=== PATIENT | male | born 1965 | race Caucasian/White ===

== ENCOUNTER 2025-04-29 15:56 | Emergency (ER) | payer BC, SELFPAY ==
--- OUTSIDE RECORDS SUMMARY | 2022-09-04 20:00 | XMS_ITS | Continuity of Care Document ---
Author Organization [facility] o Address [address] [place] [address] Phone Care Team Providers Care Forensic Social Worker Name Role Phone Arnulfo Colin PT Unavailable Unavailable Allergies, Adverse Reactions, Alerts Substance Reaction Status Criticality No Known Allergies Active No Inform ation Medications Medication Instructions Dosage Effective Dates (start - stop) Status Comments No Drug Therapy Prescribed Procedures Procedure Date Office/outpatient visit,est, mod 2021 Physical Tx excercises Office/outpatient visit,est, mod 2021 X-ray exam of hand, 2 views Ot eval low complex 30 min Physical Tx excercises Office/outpatient visit,new, mod 2021 Advance Directives Directive Yes / No Effective Date File Name No Information Encounters Encounter Description Practice Location Reason(s) For Visit Diagnoses Date Provider Providers Copied on Encounter [facility], [facility] [place], [address], tel:[phone] No Information 2 Cristi Arredondo. [address] [facility], [place], [place], [id number] , [place]. tel:[phone] Office/outpa tient visit,est, mod [facility], [address] [place], [address], [place] tel:[phone] [place] [facility] Hand Contusion of right ring finger w/o damage to nail, subsCarpal tunnel syndrome, right upper limb Jul- 2 Garrett Cardoso. [address], [place], [place], [facility], [place]. tel:[phone] Referring Provider: Walker Tucker, [address] [facility], [place], [place], [facility]. tel:[phone] [facility], [address], [facility], [place] tel:[phone] [place] [facility] Hand Unsp injury of right wrist, hand and finger(s), subs encntr 2 [facility]. [address], [place], [place], [id number] , [place]. tel:[phone] Referring Provider: Walker Tucker, [address] [facility], [place], [place], [facility]. tel:[phone] Office/outpa tient visit,[facility] [place] [facility], [address], [place], [facility], [place] tel:[phone] [place] Siddiqui Hand Contusion of right ring finger w/o damage to nail, subs 2 Garrett Cardoso. [address] [facility], [place], [place], [facility], [place]. tel:[phone] Referring Provider: Walker Tucker, [address] [facility], [place], [place], [facility]. tel:[phone] [facility], [address], [place], [facility], [place] tel:[phone] [place] [facility] Hand Unsp injury of right wrist, hand and finger(s), subs encntr 2 [facility]. [address] [facility], [place], [place], [id number] , [place]. tel:[phone] Referring Provider: Walker Tucker, [address] [facility], [place], [place], [facility]. tel:[phone] Office/outpa tient visit,[facility] [place], [address], [place], [facility], [place] tel:[phone] [facility] S[facility] Hand Injury of right hand, initial encounterInjur y of right hand, initial encounterContu amina of right middle finger w/o damage to nail, initContusion of right ring finger w/o damage to nail, init 2 Garrett Walker. [address], [place], [facility], . tel:[phone] Referring Provider: Walker Tucker, [address], [place], [facility]. tel:[phone] Family History Family Member Type Diagnosis Age At Onset Father Problem (finding) Congenital heart diseas e Mother Problem (finding) Congenital heart diseas e Payers Payer name Insurance type Covered alliance party ID Ligia cummings(s) [place] - [id number] Social History Type Description Quantity Date Captured Comments Sex Male Smoking Status No Information Chief Complaint And Reason For Visit No Information Reason For Referral Reason For Referral No Information Plan Of Treatment Date Type Action Status Future Order: Radiology Order [place], Lat, Right ([id number]), Body Site: Wrist/Hand, Sent on: Sent History Of Present Illness Encounter Date Complaint History Of Prese nt Illness Handedness/Job: [R] / [[employer]]Medical issues that may impact careDiabetes: [N]: Insulin: []: Anticoagulation: [N]: Pacemaker or defibrillator: [N]Diagnosis:05/27/2022: Right ring and small finger contusionsSurgery Performed:Tests: Handedness/Job: [R] / [[employer]]Medical issues that may impact careDiabetes: [N]: Insulin: []: Anticoagulation: [N]: Pacemaker or defibrillator: [N]Diagnosis:05/27/2022: Right ring and small finger contusionsSurgery Performed:Tests: Right hand injury Handedness/Job : [R] / [[employer]]Medical issues that may impact careDiabetes: [N]: Insulin: []: Anticoagulation: [N]: Pacemaker or defibrillator: [N]Diagnosis:05/27/2022: Right ring and small finger contusionsSurgery Performed:Tests: Functional Status Date Functional Assessmen t No Information Medications Administered Medication Instructions Dosage Effective Dates (start - stop) Status Comments No Drug Therapy Prescribed Instructions Date Instruction Additional Infor mation No Information Assessments Type Assessment Date No Information Patient Care Teams Name Effective Dates (start - stop) Status Members No Information
--- OUTSIDE RECORDS SUMMARY | 2025-02-28 09:06 | XMS_ITS ---
Author Organization [facility] Address [address] [place] [address] Phone Care Team Providers Care Healthcare Marketer Name Role Phone Cyndee VIRGEN, Chip Unavailable [phone] Conditions or Problems No information available. Medications No information available. Medications Administered No information available. Allergies, Adverse Reactions, Alerts No information available. Results No information available. Plan of Care Type Date Detail Appointment 10:15 AM Chip chacon MD, Appointment 10:00 AM Super User, Procedures No information available. Vital Signs No information available. Immunizations No information available. Advance Directives No information available.
--- NOTE | 2025-04-29 16:01 | ED_ITS ---
<Statement entered by Leonora Nunez DO - 04/29/25 16:53> I was consulted by the RAUL, and we discussed the complexity of the problems being addressed. I approved the treatment and management plan for this patient's care in the emergency department, thus performing a substantive portion of the medical decision making. Leonora Nunez DO Discharge Plan Disposition Patient Disposition: Home, Self-Care Referrals Follow up/Referrals: Rachel Wood [Primary Care Provider, Medical] - See instructions Activity Restrictions/Add. Instructions Additional Instructions/Restrictions: Today you were evaluated in the emergency department and diagnosed with sunburn. There is a possibility that this may be infectious and perhaps cellulitis, it is early and difficult to tell at this time. Will start you on doxycycline, an oral antibiotic as it is a low risk. It does increase your risk of skin sensitivity so please do not be in the sun while taking this medication. Follow-up with your PCP within this coming week. Return to the ED for worsening of condition. Clinical Impressions Clinical Impression: Sunburn Instructions Patient Instructions: DI for Sunburn Print Language Print Language: Citizen Of [place] Discharge ED Provider: Leonora Nunez General Adult HPI General Chief complaint: Skin/Abscess/Foreign Body Stated complaint: burning rash on right side Time Seen by Provider: 04/29/25 15:59 History of Present Illness HPI narrative: patient is a 59-year-old male who presents to the ED after sustaining a sunburn yesterday. Patient states he was laying on his side working on a tractor when his shirt pulled up and his pants were pulled down a bit, causing a sunburn on his right lower quadrant and side. Related Data Allergies Allergy/AdvReac Type Severity Reaction Status Date / Time No Known Allergies Allergy Verified 04/29/25 16:19 [facility] Disclaimer: The information contained in this section may have been updated after the patient was seen, as this information can be updated by other users. Social History Smoking Status: Never smoker alcohol intake: never current occupational status: employed Travel in the last 8 weeks?: None ROS Obtained: Yes Systems reviewed as appropriate & no additional complaints exc ept as documented Physical Exam General General appearance: alert and in no apparent distress Head Head exam: atraumatic and normocephalic Eye Eye exam: Present normal appearance and PERRL ENT ENT exam: Present normal exam Neck Neck exam: Present normal inspection Chest Chest inspection: Present normal inspection and symmetric chest wall rise; Absent tenderness Respiratory Respiratory exam: Present normal lung sounds bilaterally Cardiovascular Cardiovascular exam: Present regular rate Abdominal Exam Abdominal exam: Present soft and normal bowel sounds; Absent tenderness Extremities Exam Extremities exam: Present normal inspection and full ROM Back Exam Back exam: Present normal inspection and full ROM Neurological Exam Neurological exam: Present alert and oriented X3 Psychiatric Psychiatric exam: Present normal affect and normal mood Skin Skin exam: Present dry, intact and other (Large erythematous, warmth, blanchable area on patient's right lower abdomen and right side) Medical Decision Making Medical Records Screening: Per USPSTF and CDC recommendations, given the prevalence of disease in our region, it is our hospital?s policy to screen for HIV and viral Hepatitis for all patients aged 18 and over and those with ongoing risk factors. Russell Inquiry Pt receiving controlled substance: No Vital Signs: 04/29/25 16:04 04/29/25 16:31 Temperature 98.9 F 98.9 F Temperature Source Oral Pulse Rate 80 Pulse Rate [Right] 68 Respiratory Rate 20 18 Blood Pressure 155/91 H Blood Pressure [Right Arm] 155/91 H Blood Pressure Mean [Right Arm] 112 02 Sat by Pulse Oximetry 96 Oxygen Delivery Method Room Air Orders (Tests/Meds): ED MEDICATIONS Discontinued Medications Generic Name Dose Route Start Last Admin Trade Name Gerardq PRN Reason Stop Dose Admin Doxycycline Hyclate 100 mg 04/29/25 16:17 04/29/25 16:22 Doxycycline Hycl 100 Mg Tablet PO 04/29/25 16:18 100 mg ONCE ONE Administration Medical Decision Narrative: In summary, patient is a 59-year-old male who presents to the ED after sustaining a sunburn yesterday. Patient states he was laying on his side working on a tractor when his shirt pulled up and his pants were pulled down a bit, causing a sunburn on his right lower quadrant and side. Patient states that this morning he woke up and feels that the redness has expanded. He also mentions that his has removed several ticks from him recently. He denies fever, chills, body aches, abdominal pain, back pain, nausea, vomiting. Denies any other injuries. Upon initial evaluation patient is alert, oriented and cooperative. He is stable. Physical exam remarkable for a blanchable, erythematous, warm rash noted to right lower quadrant and side. Small papule noted in the erythematous area. Although the current rash does not appear to be a tick related rash, it would be low risk to treat the patient with doxycycline. We discussed using aloe on the sunburn, keeping an eye on the area. Follow-up with PCP next week. Return to the ED for worsening of condition. Will send doxycycline to the pharmacy and administer first dose while in the ED. Critical Care Critical Care Time Critical Care Time: No
[2025-04-29 16:04] VITALS: BP 155/91; PULSE 68; RESP 20; TEMP 37.2; O2SAT 96; BMI 42.3
--- OUTSIDE RECORDS SUMMARY | 2025-04-29 16:21 | XMS_ITS | Referral Summary ---
Author Organization [facility] Address [address] [place] [address] Phone Care Team Providers Care Dairy Farm Worker Name Role Phone Marielle Schwartz MD Primary Care Provide r Allergies No known active allergies Medications valsartan (DIOVAN) 40 MG TABSIndications:E ssential hypertension Take 1 tablet by mouth daily. 60 tablet 1 3 Active cyclobenzaprine (FLEXERIL) 10 MG TABS Take by mouth 3 (three) times daily. Active valsartan (DIOVAN) 160 MG TABS TAKE ONE TABLET BY MOUTH DAILY 90 tablet 2 3 Active atorvastatin (LIPITOR) 40 MG TABS TAKE ONE TABLET BY MOUTH AT BEDTIME 90 tablet 2 3 Active Active Problems Problem Noted Date Diagnosed Date Essential hypertension 02/27/2023 Cervical spinal stenosis 02/27/2023 Morbid obesity with BMI of 40.0-44.9, adult 02/08 Mixed hyperlipidemia 02/27/2023 Tobacco dependence due to chewing tobacco 2022 Immunizations Immunization Administration Dates Next Due Tdap (Tetanus, Diphtheria & Pertussis) 5 Social History Tobacco Use Types Packs/Day Years Used Date Smoking Tobacco: Former Cigarettes 1 25 0 06/20/1988 - 06/20/2013 Smokeless Tobacco: Current Chew Tobacco Cessation:Ready to Q uit: Not Asked; Counseling Given: Not Answered Comments:dip Alcohol Use Standard Drinks/Week Comments Yes 14 (1 standard drink = 0.6 oz pu re alcohol) Hunger Vital Sign Answer Date Recorded Within the past 12 months, y ou worried that your food would run out before you got the money to buy more. Never true 04/24/20 23 Within the past 12 months, t he food you bought just didn't last and you didn't have money to get more. Never true 04/24/2023 Food Insecurities Answer Date Recorded Worried about running out of food Not on file 11/29/2023 Food Bought Not on file 11/29/2023 Housing/Utilities Answer Date Recorded Worried about losing home Not on file 2023 Stayed outside house Not on file 11/29/2023 Unable to get utilities Not on file 11/29/19 24 Interpersonal Safety Answer Date Record ed Feel physically or emotionally unsafe where curr ently live Not on file 11/29/2023 Harm by anyone Not on file 11/29/2023 Emotionally Harmed Not on file 11/29/2023 Transportation Answer Date Recorded Worried about transportation Not on file Utilities Answer Date Recorded Worried about losing home Not on file 2023 Stayed outside house Not on file 03/13/2024 Unable to get utilities Not on file 03/13/20 Sex and Gender Information Value Date Recorded Sex Assigned at Not on file Legal Sex Male 8:28 PM EDT Gender Identity Not on file Sexual Orientation Not on file Last Filed Vital Signs Vital Sign Reading Time Taken Comments Blood Pressure 139/84 05/29/2023 10:09 AM EDT Pulse 63 05/29/2023 10:09 AM EDT Temperature 36.7 C (98.1 F) 04/24/2023 9:02 AM EDT Respiratory Rate 14 02/27/2023 11:06 AM EDT Oxygen Saturation 96% 05/29/2023 10:09 AM EDT Inhaled Oxygen Concentration - - Weight 134.7 kg (297 lb) 05/29/2023 10:09 AM EDT Height 177.8 cm (5' 10 ) 05/29/2023 10:09 AM EDT Body Mass Index 42.62 05/29/2023 10:09 AM EDT Plan of Treatment Not on file Procedures Procedure Name Priority Date/Time Associated Diagnosis Comments CT LUNG SCREENING-ANNUAL Routine 05/29/2023 11:02 AM EDT Former cigarette smoker PROSTATIC SPECIF AG-BLOOD Routine 12/05/2022 11:11 AM EST Screening for prostate cancer from Last 3 Months or Most Recently Relevant to Health Maintenance Results * CT LUNG SCREEN (05/29/2023 11:02 AM EDT) Anatomical Region Laterality Modality Chest Computed Tomogra phy 05/29/2023 11:3 0 AM EDT Impressions 05/29/2023 11:34 AM EDT Unremarkable low dose lung screen chest CT LUNG-RADS CATEGORY: 1: No nodules; definitely benign nodules with specific calcifications: complete, central, popcorn, concentric rings; fat containing nodules. MODIFIER: None NODULE RECOMMENDATION: Category 1 or 2: Continue annual low dose CT lung cancer screening. Patient should return in one year for a follow-up exam. OTHER RECOMMENDATION: None Narrative 05/29/2023 11:34 AM EDT HISTORY: Lung cancer screening, >= 20 pk-yr smoking history, risk factor(s) (Age >= 50y) Personal history of nicotine dependence. Screen for lung nodule or mass. COMPARISON: None TECHNIQUE: Low-dose noncontrast CT images of the chest utilizing lung screening protocol Study CTDI Volume Max: 2.63 mGy Study DLP Sum:82.46 mGy*cm Reconstructed Image Width: 2 mm Associated Accession Numbers: [id number] NOTE: If there are questions about the content of this report, please contact [facility] radiology by calling [phone] FINDINGS: NODULES/MASSES: No nodules or masses OTHER LUNGS/AIRWAYS: Unremarkable. PLEURA: Unremarkable. No pleural effusion or pneumothorax MEDIASTINUM/MALENA: Unremarkable HEART/PERICARDIUM: Mild coronary artery calcifications VESSELS: Unremarkable. No aneurysm CHEST WALL/LOWER NECK: Unremarkable UPPER ABDOMEN: Unremarkable BONES: Unremarkable OTHER: None Minerva Espinoza CNP CT Final Result * PROSTATIC SPECIF AG-BLOOD (12/05/2022 11:11 AM EST) PROSTATIC SPECIF AG 0.29 <=4.00 ng/mL [facility] Comment: (NOTE) Ingestion of breonna doses of biotin (>5 mg/day) taken within 8 hours of drawing blood sample can interfere with this immunoassay test. Tested at: [facility], [address] [address] Whole Blood 12/05/2022 11:1 1 AM EST 12/05/2022 3:35 PM EST Tej Agarwal MD, FACP LAB BLOOD ORDERABLES Final Result [facility] [address] [place] [address] [facility] from Last 3 Months or Most Recently Relevant to Health Maintenance Insurance [employer] ALL OTHERS NOT MEDICARE Care Teams Dairy Farm Worker Relationship Specialty Start Date End Date Marielle Schwartz MD PCP - General Internal Medicine 05/06/24
--- OUTSIDE RECORDS SUMMARY | 2025-04-29 16:21 | XMS_ITS | Clinical Summary ---
Author Organization [facility] Address [address] [place] [address] Care Team Providers Care Alcohol Law Enforcement Agent Name Role Phone Chip Cotter MD Unavailable [phone] Rachel Wood MD Primary Care Provider [phone] Allergies No known active allergies Medications fexofenadine (LOVELY) 60 mg tablet Take 60 mg by mouth daily. Active pregabalin (LYRICA) 75 mg Capsule Take 75 mg by mouth 2 times daily. Active valsartan (DIOVAN) 40 mg Tablet Take 40 mg by mouth daily. Active TIMOLOL OP Apply 1 Drop to eyes in the morning and at bedtime. Left eye only Active methocarbamoL (ROBAXIN) 750 mg tablet Take 1 Tablet (750 mg) by mouth every 6 hours as needed for Pain (muscle spasms, muscle pain). 60 Tablet 09/05/2024 12:31 PM EDT 09/05/2024 Active Active Problems Problem Noted Date Diagnosed Date Lumbar stenosis with neurogenic claudication Lumbar stenosis 09/02/2024 Family History Medical History Relation Name Comments Heart Problems Father PACEMAKER Heart Problems Mother PACEMAKER Anesthesia Complications Neg Hx Relation Name Status Comments Father Mother Social History Tobacco Use Types Packs/Day Years Used Date Smoking Tobacco: Former Cigarettes Q uit: 2010 Smokeless Tobacco: Current Chew Tobacco Cessation:Ready to Q uit: Not Asked; Counseling Given: Not Answered Comments:DIP daily 1.5 PPD x 45 years Alcohol Use Standard Drinks/Week Comments Yes 80 (1 standard drink = 0.6 oz pu re alcohol) Sex and Gender Information Value Date Recorded Sex Assigned at Male 08/24/2024 8:49 AM EDT Legal Sex Male 2:13 PM EDT Gender Identity Male 08/24/2024 8:49 AM EDT Sexual Orientation Not on file Last Filed Vital Signs Vital Sign Reading Time Taken Comments Blood Pressure 105/56 09/05/2024 11:22 AM EDT Pulse 69 09/05/2024 11:22 AM EDT Temperature 37.1 C (98.7 F) 09/05/2024 11:22 AM EDT Respiratory Rate 16 09/05/2024 11:22 AM EDT Oxygen Saturation 100% 09/05/2024 11:22 AM EDT Inhaled Oxygen Concentration - - Weight 132.9 kg (293 lb) 09/02/2024 9:37 PM EDT Height 177.8 cm (5' 10 ) 09/02/2024 9:37 PM EDT Body Mass Index 42.04 09/02/2024 9:37 PM EDT Plan of Treatment Health Maintenance Due Date Last Done Comments Cologuard 1967 Colonoscopy 1967 Colorectal Cancer Screening 1967 FIT 1967 Lipid Monitoring 1984 Pneumococcal Vaccine: 50+ Years (1 of 1 - PCV) 017 Zoster-RZV(Shingrix) (1 of 2) 2017 COVID-19 Vaccine (1 - season) 2024 BMI Counseling 11/09/2024 Depression Screening 11/09/2024 Influenza Vaccination (Season Ended) 2025 Tetanus Vaccination (Every 10 Years) 10/01/202509/10 Medical Devices Implanted Type Area Correctional Case Records Supervisor Device Identifier Shelf Expiration Date Model / Serial / Lot Fbr Bon Pliafx 1cc - [id number] Implanted:Qty : 1 on 03/11/2023 by Chip Cotter MD at [facility] N/A: Spine Cervical LIFENET [id number] 10/21/2026 BL-1800-01 / [id number] / Imp Acis [id number] - [id number] Implanted:Qty : 1 on 03/11/2023 by Chip Cotter MD at [facility] Spine Cervical MICHAEL \T\ [employer] INC 07/29/2027 [id number] / / [id number] Plate Bernardo 1 Lev 12mm Ti - [id number] Implanted:Qty : 1 on 03/11/2023 by Chip Cotter MD at [facility] Spine Cervical * J \T\ J DEPUY 1868-01-012 / / Scr Bernardo Jennifer S-D 16mm Ti - [id number] Implanted:Qty : 2 on 03/11/2023 by Chip Cotter MD at [facility] Spine Cervical MICHAEL \T\ [employer] [id number] / / Scr Bernardo Const S-D 16mm Ti - [id number] Implanted:Qty : 2 on 03/11/2023 by Chip Cotter MD at [facility] Spine Cervical MICHAEL \T\ [employer] [id number] / / Fbr Bon Pliafx 5cc - [id number] Implanted:Qty : 1 on 09/02/2024 by Chip Cotter MD at [facility] N/A: Spine Lumbar LIF[employer]ET [id number] 05/07/2029 BL-1800-05 / [id number] / Fibergraft Bg Putty M 6cc - [id number] Implanted:Qty : 1 on 09/02/2024 by Chip Cotter MD at [facility] N/A: Spine Lumbar MICHAEL \T\ [employer] [id number] 01/27/2027 [id number] / / [id number] Graft Bone Kt Infuse X Sm - [id number] Implanted:Qty : 1 on 09/02/2024 by Chip Cotter MD at [facility] N/A: Spine Lumbar [employer] [id number] 12/09/2025 [id number] / / [id number] Graft Bone Spnl Dfrmity 1x10cm - [id number] Implanted:Qty : 1 on 09/02/2024 by Chip Cotter MD at [facility] N/A: Spine Lumbar [employer] [id number] 06/01/2026 [id number] / [id number] / Graft Bone Kt Infuse X Sm - [id number] Implanted:Qty : 1 on 09/02/2024 by Chip Cotter MD at [facility] N/A: Spine Lumbar [employer] [id number] 12/09/2025 [id number] / / [id number] Graft Bone Kt Infuse Sm - [id number] Implanted:Qty : 1 on 09/02/2024 by Chip Cotter MD at [facility] N/A: Spine Lumbar [employer] [id number] 01/07/2026 [id number] / / [id number] Fbr Bon Pliafx 5cc - [id number] Implanted:Qty : 1 on 09/02/2024 by Chip Cotter MD at [facility] N/A: Spine Lumbar [employer]IF[employer]ET [id number] 05/07/2029 BL-1800-05 / [id number] / Imp Ibf Ui H 13mm 8deg 31/07 - [id number] Implanted:Qty : 1 on 09/02/2024 by Chip Cotter MD at [facility] N/A: Spine Lumbar MICHAEL \T\ [employer] [id number] 11/08/2025 [id number] / / [id number] Imp Ibf Ui H 13mm 8deg 31/07 - [id number] Implanted:Qty : 1 on 09/02/2024 by Chip Cotter MD at [facility] N/A: Spine Lumbar MICHAEL \T\ [employer] [id number] 11/08/2025 [id number] / / [id number] T Pal Spcr 12mm X 32mm 12mm Ht - [id number] Implanted:Qty : 1 on 09/02/2024 by Chip Cotter MD at [facility] N/A: Spine Lumbar MICHAEL \T\ [employer] [id number] / / T Pal Spcr 12mm X 32mm 10mm Ht - [id number] Implanted:Qty : 1 on 09/02/2024 by Chip Cotter MD at [facility] N/A: Spine Lumbar MICHAEL \T\ [employer] 08.812.210 / / Pre-Lordosed Thaddeus W/Line 140mm - [id number] Implanted:Qty : 2 on 09/02/2024 by Chip Cotter MD at [facility] N/A: Spine Lumbar MICHAEL \T\ [employer] [id number] / / Scr Si Polyaxl 7 X 45mm - [id number] Implanted:Qty : 6 on 09/02/2024 by Chip Cotter MD at [facility] N/A: Spine Lumbar MICHAEL \T\ [employer] [id number] / / Scr Si Polyaxl 7 X 40mm - [id number] Implanted:Qty : 4 on 09/02/2024 by Chip Cotter MD at [facility] N/A: Spine Lumbar MICHAEL \T\ [employer] [id number] / / Viper T27 Iliac Scr 8x90 Ti - [id number] Implanted:Qty : 2 on 09/02/2024 by Chip Cotter MD at [facility] N/A: Spine Lumbar MICHAEL \T\ Welocalize [id number] / / Single-Inner Setscr - [id number] Implanted:Qty : 12 on 09/02/2024 by Chip Cotter MD at [facility] N/A: Spine Lumbar MICHAEL \T\ Wel[employer]ize [id number] / / Insurance Advance Directives For more information, please contact: [phone] * Full Code (Latest Code Status on File) Date Activated Date Inactivated Comments 09/02/2024 11:56 AM No automated chest compression devices for VAD Patients Care Teams Alcohol Law Enforcement Agent Relationship Specialty Start Date End Date Rachel Wood MD [address] [place] [address] PCP - General Family Medicine 09/02/24 Chip Cotter MD [address] [place] [address] Neurosurgery 02/25/23
--- OUTSIDE RECORDS SUMMARY | 2025-04-29 16:21 | XMS_ITS | Encounter Summary ---
Author Organization [facility] Address [address] [place] [address] Phone Care Team Providers Care Hotel Front Desk Clerk Name Role Phone Monae Almaraz MD Primary Care Provid er Kaylie Wade MD Primary Care Provider Marielle Schwartz MD Primary Care Provide r Encounter Details Date Type Department Care Team (Late st Contact Info) Description 11/27/2022 Medication Management [facility] [address] [facility] [address] [place] [address] Monae Almaraz MD [address] [place] [address] Social History Tobacco Use Types Packs/Day Years Used Date Smoking Tobacco: Former Cigarettes 1 25 0 06/20/1991 - 06/20/2016 Smokeless Tobacco: Current Chew Comments:dip Alcohol Use Standard Drinks/Week Comments Yes 14 (1 standard drink = 0.6 oz pu re alcohol) Hunger Vital Sign Answer Date Recorded Within the past 12 months, y ou worried that your food would run out before you got the money to buy more. Never true 06/20/20 22 Within the past 12 months, t he food you bought just didn't last and you didn't have money to get more. Never true 06/20/2022 Sex and Gender Information Value Date Recorded Sex Assigned at Not on file Legal Sex Male 8:28 PM EDT Gender Identity Not on file Sexual Orientation Not on file COVID-19 Exposure Response Date Recorded In the last 10 days, have yo u been in contact with someone who was confirmed or suspected to have Coronavirus/COVID-19? Unable to assess 11/15/2022 4:04 AM EST documented as of this encounter Plan of Treatment Not on file documented as of this encounter Visit Diagnoses Not on filedocumented in this encounter Care Teams Hotel Front Desk Clerk Relationship Specialty Start Date End Date Monae Almaraz MD PCP - General Internal Medicine 06/20/22 04/30/23 Kaylie Wade MD PCP - General Internal Medicine 05/01/23 05/05/24 Marielle Schwartz MD PCP - General Internal Medicine 05/06/24 documented as of this encounter
--- OUTSIDE RECORDS SUMMARY | 2025-04-29 16:21 | XMS_ITS | Clinical Summary ---
[facility] Address [address] [place] [address] Care Team Providers Care Fixture Repairer Fabricator Name Role Phone Unavailable Primary Care Provider Unavailabl e Allergies No known active allergies Medications atorvastatin (LIPITOR) 20 MG tabletIndication s:Dyslipidemia Take 1 tablet by mouth daily 30 tablet 11 10/30/2015 Active Active Problems Problem Noted Date Diagnosed Date Elevated glucose 11/04/2015 BMI 40.0-44.9, adult 11/04/2015 Dyslipidemia 11/04/2015 Metabolic syndrome 11/04/2015 Overview (11/04/2015): Sep 2015: --waist circ > 40 inches --TGs > 150 --fasting glucose > 100. Cataracts, bilateral 02/17/2012 Resolved Problems Problem Noted Date Diagnosed Date Resolved Date Pre-op exam 10/01/2015 11/04/2015 Annual physical exam 10/01/2015 015 AGE (acute gastroenteritis) 01/11/2015 10/01/2015 Cellulitis 11/01/2012 10/01/2015 Immunizations Immunization Administration Dates Next Due TDaP, ADACEL (age 10y-64y), BOOSTRIX (age 10y+), IM, 0.5mL 10/01/2015 Family History Medical History Relation Name Comments Heart Disease Father on warfarin Heart Disease Mother pacemaker Breast Cancer Sister Relation Name Status Comments Father Mother Sister Social History Tobacco Use Types Packs/Day Years Used Date Smoking Tobacco: Former Cigarettes Q uit: 02/17/2008 Smokeless Tobacco: Never Alcohol Use Standard Drinks/Week Comments Not Asked 0 (1 standard drink = 0.6 oz pur e alcohol) Sex and Gender Information Value Date Recorded Sex Assigned at Not on file Legal Sex Male 6:40 PM EST Gender Identity Not on file Sexual Orientation Not on file Last Filed Vital Signs Vital Sign Reading Time Taken Comments Blood Pressure 120/78 10/30/2015 3:25 PM EST Pulse 60 10/30/2015 3:25 PM EST Temperature 37.1 C (98.7 F) 10/30/2015 3:25 PM EST Respiratory Rate 12 10/30/2015 3:25 PM EST Oxygen Saturation - - Inhaled Oxygen Concentration - - Weight 128.6 kg (283 lb 9.6 oz) 10/30/2015 3:25 PM EST Height 172 cm (5' 7.72 ) 10/30/2015 3:25 PM EST Body Mass Index 43.48 10/30/2015 3:25 PM EST Plan of Treatment Not on [place] [address] [place] [address]
--- OUTSIDE RECORDS SUMMARY | 2025-04-29 16:21 | XMS_ITS | Clinical Summary ---
Author Organization [facility] Address [address] [place] [address] Phone Care Team Providers Care Solar Installer Name Role Phone Marielle Schwartz MD Primary [...] Due Tdap (Tetanus, Diphtheria & Pertussis) 5 Family History Medical History Relation Name Comments Heart Failure Father Hyperlipidemia Father Hypertension Father pacemaker Father Arrhythmia Mother Hyperlipidemia Mother Hypertension Mother pacemaker Mother Relation Name Status Comments Father Maternal Grandfather Maternal Grandmother Mother Paternal Grandfather Paternal Grandmother Social History Tobacco Use Types Packs/Day Years [...] to get utilities Not on file 11/29/19 Interpersonal Safety Answer Date Record ed Feel [...] 05/29/2023 10:09 AM EDT Plan of Treatment Health Maintenance Due Date Last Done Comments Colonoscopy 2012 Pneumococcal 50+ (1 of 1 - PCV) 2017 Shingrix (#1) 2017 PSA YEARLY 12/05/2023 12/05/2022 Influenza Vaccine (Season Ended) 2025 DTap,Tdap,and Td (2 - Td or Tdap) 10/01/2025 015 RSV Vaccine (60+ or ) (1 - 1-dose 75+ series) 2042 Lung Cancer Screening Discontinued 05/29/2023 HPV Aged Out No longer eligi ble based on patient's age to complete this topic Meningococcal conjugate sanya nt 4 (MCV4) Aged Out No longer eligible b ased on patient's age to complete this topic RSV Immunization (<20 months) Aged Out No longer eligible based on patient's age to complete this topic Procedures Procedure Name Priority Date/Time Associated Diagnosis [...] Image Width: 2 mm Associated Accession Numbers: [id number] NOTE: If there are questions about the content of this report, please contact [facility] radiology by calling [phone] FINDINGS: NODULES/MASSES: No nodules or masses OTHER LUNGS/AIRWAYS: Unremarkable. PLEURA: Unremarkable. No pleural effusion or pneumothorax MEDIASTINUM/MALENA: Unremarkable HEART/PERICARDIUM: Mild coronary artery calcifications VESSELS: Unremarkable. No aneurysm CHEST WALL/LOWER NECK: Unremarkable UPPER ABDOMEN: Unremarkable BONES: Unremarkable OTHER: None us Minerva Espinoza [employer]LE[employer] PH[employer] INSTRUCTOR CT Final Result * PROSTATIC SPECIF AG-BLOOD (12/05/2022 11:11 AM EST) PROSTATIC SPECIF AG 0.29 <=4.00 ng/mL [facility] Comment: (NOTE) Ingestion of breonna doses of biotin (>5 mg/day) taken within 8 hours of drawing blood sample can interfere with this immunoassay test. Tested at: [place] [id number] Whole Blood 12/05/2022 11:1 1 AM EST 12/05/2022 3:35 PM EST us Tej Agarwal MD, [facility] BLOOD ORDERABLES Final Result [facility] [address] [place] [address] [facility] from Last 3 Months or Most Recently Relevant to Health Maintenance Insurance [employer] ALL OTHERS NOT MEDICARE Care Teams Solar Installer Relationship Specialty Start Date End Date Marielle Schwartz MD PCP - General Internal Medicine 05/06/24
--- OUTSIDE RECORDS SUMMARY | 2025-04-29 16:21 | XMS_ITS | Clinical Summary ---
Author Organization [facility] Address [address] [place] [address] Phone Care Team Providers Care Parcel Wrapper Name Role Phone Saige Larson Conditions or Problems Problem Name Problem Code Onset Date Status Entry Date Provider Comment Standard Description Annotate LUMBAR SPONDYLOSIS WITH MYELOPATHY 62228549 (SNOMED CT) 02/28 Active 02/28 Georgiana Nikko Lumbar spondylosis with myelopathy LUMBAR SPONDYLOLISTH ESIS, ACQUIRED, L5-S1 M43.17 (ICD-10-CM ) 07/22 Active 07/22 Gail Marlene Spondylolisthe sis, lumbosacral region LUMBAR STENOSIS, L1-L5, WITH NEUROGENIC CLAUDICATION M48.062 (ICD-10-CM ) 07/22 Active 07/22 Gail Marlene Spinal stenosis, lumbar region with neurogenic claudication LUMBAR RADICULOPATHY 115875684 (SNOMED CT) 04/19 Active 04/19 Georgiananancy El Lumbar radiculopathy OVERWEIGHT 702325865 (SNOMED CT) 01/27 Active 01/27 Ruby Fox MA Overweight SPONDYLOSIS, LUMBAR, WITHOUT MYELOPATHY 90873539 (SNOMED CT) Active Deanna Angel MA Lumbosacral spondylosis without myelopathy THORACIC MYELOPATHY 85485069 (SNOMED CT) Active Deanna Ortiz MA Spinal cord disease ARTHRODESIS STATUS 128570910 (SNOMED CT) 02/04 Active 02/04 Georgiana Hitz H/O: arthrodesis CERVICAL MYELOPATHY 068094154 (SNOMED CT) 11/19 Active 01/30 Kori Malik SUSTAINABILITY SPECIALIST Cervical myelopathy CERVICAL STENOSIS, C3-C7 M48.02 (ICD-10-CM ) 11/19 Active 11/19 Kori King SUSTAINABILITY SPECIALIST Spinal stenosis, cervical region No known active problems unknown Active 01/27 Deanna Ortiz MA unknown Imported from A: [employer] (28-Jan-20 at 02:54:06 PM) CERVICAL STENOSIS, C3-C7 M48.02 (ICD-10-CM ) 11/19 Inactive 11/19 Juan Daniel Nasima Spinal stenosis, cervical region Medications Medication Instructions Start Date Stop Date Generic Name NDC Provider METHOCARBAMOL 750 MG TABS Take 1 tablet by mouth every evening 12/14 methocarbamol [id number] Kath Gardiner PA-C METHOCARBAMOL 750 MG TABS Take 1 tablet by mouth three times a day methocarbamol 53021155816 Kath Gardiner PA-C TIMOLOL MALEATE 0.5 % SOLN timolol maleate 27455010478 Georgiana Claycomo PREDNISOLONE ACETATE 1 % SUSP prednisolone acetate 74696046346 Georgiana Claycomo OFLOXACIN 0.3 % SOLN ofloxacin 04870003284 Georgiananancy Lights VALIUM 5 MG TABS Take 1 tablet by mouth single dose 1 tablet 1 hour PRIOR to procedure: May take additional pill at time of test/procedure if needed. Must have pick up truck driver. 05/24 diazepam [id number] Minal Upton MD VALIUM 5 MG TABS Take 1 tablet by mouth single dose as directed 1 tablet 1 hour PRIOR to procedure: May take additional pill at time of test/procedure if needed. Must have pick up truck driver. diazepam [id number] Minal Upton MD TRAMADOL HCL 50 MG TABS Take 1 tablet by mouth every six to eight hours for pain 04/07 tramadol [id number] Sanjay Short PA-C TRAMADOL HCL 50 MG TABS Take 1 tablet by mouth every six to eight hours as needed for pain tramadol 81601207705 Kath Gardiner PA-C TRAMADOL HCL 50 MG TABS Take 1 tablet by mouth every six hours 02/08 tramadol [id number] Chip Cotter MD LYRICA 75 MG CAPS Take 1 capsule by mouth twice a day pregabalin 38385399653 Kath Gardiner PA-C TRAMADOL HCL 50 MG TABS Take 1 tablet by mouth every six to eight hours for pain 04/07 tramadol 64845279150 Kath Gardiner PA-C VALIUM 5 MG TABS Take 1 tablet by mouth single dose 1 tablet 1 hour PRIOR to procedure: May take additional pill at time of test/procedure if needed. Must have pick up truck driver. 05/24 diazepam [id number] Chip Cotter MD GABAPENTIN 300 MG CAPS Take 3 capsule by mouth three times a day gabapentin 27598708058 Chip Cotter MD VALIUM 5 MG TABS Take 1 tablet by mouth single dose 1 tablet 1 hour PRIOR to procedure: May take additional pill at time of test/procedure if needed. Must have pick up truck driver. 01/22 diazepam 49039483090 Chip Cotter MD TRAMADOL HCL 50 MG TABS Take 1 tablet by mouth every six hours 02/08 tramadol 83872766941 Kath Gardiner PA-C GABAPENTIN 300 MG CAPS Take 3 capsule by mouth three times a day 11/28 gabapentin 49687293861 Chip Cotter MD METHOCARBAMOL 750 MG TABS Take 1 tablet by mouth every evening 12/14 methocarbamol 44235824497 Chip Cotter MD GABAPENTIN 100 MG CAPS 06/05 gabapentin 04967906105 Deanna Ortiz MA GABAPENTIN 300 MG CAPS Take 3 capsule by mouth three times a day 11/28 gabapentin 20259738963 Chip Cotter MD METHOCARBAMOL 750 MG TABS Take 1 tablet by mouth every evening 2/05 methocarbamol 29066790271 Chip Cotter MD GABAPENTIN 100 MG CAPS 06/05 gabapentin [id number] Deanna Ortiz MA VALSARTAN 40 MG TABS valsartan 62557103172 Deanna Ortiz MA ATORVASTATIN CALCIUM 10 MG TABS atorvastatin 04057509394 Ken nna Ortiz MA CYCLOBENZAPRINE HCL 5 MG TABS cyclobenzaprine [id number] Deonn a Ortiz MA Medications Administered No information available. Allergies, Adverse Reactions, Alerts Allergy Name Reaction Description Start Date Severity Statu s Provider No known active allergies No known active allergies Mild Gail Marlene Results Date Name Value Unit Range Flag Description Lab Report: BASIC METABOLIC PANEL GLUCOSE SER 106 mg/dL 71-99 H Glucose [Mass/volume] in Serum or Plasma Lab Report: Staph Aureus Scr een PCR, Nares MRSA MCA PCR POSITIVE NEGATIVE A Staphy lococcus aureus methicillin resistance SCCmec [Presence] in Nose by CARLENE with probe detection Lab Report: TYPE AND SCREEN RH TYPE Positive Rh antigen ABO BLD GRP O ABO blood group Lab Report: URINALYSIS W/ RE FLEX TO MICROSCOPIC MUCUS URINE Present None Seen A Mucus [ Presence] in Urine sediment by Light microscopy BACTURMICRO Rare /HPF /[HPF] None Seen A bacte sarah, urine, microscopic WBC UR 1 /[HPF] 0-5 leukocytes, n umber seen, urine specimen, by microscopy URBC 6 /[HPF] 0-3 H Erythrocytes [#/area] in Urine sediment by Microscopy high power field WBC ESTERASE Negative Negative leukoc yte (WBC) esterase, urine NITRITE UA Negative Negative Nitrite Urine UROBILINOGEN <2.0 <2.0 Urobilin ogen [Presence] in Urine by Test strip PROTEIN, URN 10 Negative A protein , urine, semiquantitative (dipstick) PH U QN 5.5 NA 5.0-8.0 ph, urine, quantitative BLOOD UR Negative Negative BLOOD, URI NE (hematuria) SPEC GR URIN 1.025 NA 1.005-1.035 Spe cific gravity of Urine by Test strip KETONES UR Negative Negative KETONES, URINE BILIRUBIN UR Negative Negative Biliru bin.total [Presence] in Urine by Test strip GLUCOSE, URN Negative Negative Glucos e [Mass/volume] in Urine by Test strip CLARITY UR Clear Clear clarity, u rine, point UA COLOR Yellow Yellow,Straw ,Colorless Color of Urine Lab Report: ANTIBODY SCREEN ANTIBODY SCR Negative Negative antibo dy screen, serum Lab Report: APTT PTT PATIENT 32.5 s 23.1-37.6 PTT pat ient Lab Report: BASIC METABOLIC PANEL (BMP=EP1) BUN/CREAT 10 NA Urea nitrogen/Creatinine [Mass Ratio] in Serum or Plasma CALCIUM 9.0 mg/dL 8.5-10.5 Calcium [Moles/volume] in Serum or Plasma GLUCOSE UA 83 mg/dL 71-99 Glucose [Mass/volume] in Urine by Test strip CREATININE 0.80 mg/dL 0.50-1.30 Creatini ne [Mass/volume] in Serum or Plasma BUN 8 mg/dL 7-25 Urea nitrogen [Mass/volume] in Serum or Plasma ANIONGAP 7 mmol/L 5-13 anion gap, s shaan CO2 TOTAL 25 mmol/L 22-29 carbon diox josé, serum, total CHLORIDE 105 mmol/L 98-110 Chloride [Moles/volume] in Serum or Plasma POTASSIUM 4.2 mmol/L 3.5-5.1 Potassium [Moles/volume] in Serum or Plasma SODIUM 137 mmol/L 135-146 Sodium [Moles/volume] in Serum or Plasma Lab Report: CBC (COMPLETE BL OOD COUNT) MPV 10.9 fL 9.0-13.0 Platelet royal n volume [Entitic volume] in Blood by Nikita PLATELET CNT 217 10*3/uL 140-400 platelet count RDW 13.3 % 11.0-15.0 Erythrocyte distribution width [Ratio] by Automated count MCHC RBC 33.6 g/dL 30.0-36.0 mean corpu scular hemoglobin concentration, RBC MCH 30.4 pg 27.0-33.0 MCH [Entiti c mass] by Automated count MCV 90.7 fL 80.0-100.0 MCV [Entit ic volume] by Automated count HCT 43.8 % 40.0-51.0 Hematocrit [Volume Fraction] of Blood by Automated count HGB 14.7 g/dL 13.2-17.1 Hemoglobin [Mass/volume] in Blood RBC 4.83 10*6/mm3 4.20-5.80 Erythrocyt es [#/volume] in Blood by Automated count WBC 5.30 10*3/mm3 3.80-10.80 Leukocyte s [#/volume] in Blood by Automated count Lab Report: PT (PRO TIME INC TORI INR) INR 0.9 NA 0.9-1.1 INR in Platel et poor plasma by Coagulation assay PT PATIENT 11.6 s 10.5-14.1 Prothrom bin time (PT) Plan of Care Type Date Detail Appointment 10:15 AM Chip chacon MD, Appointment 10:00 AM Super User, Pending order MRI Cervical wit hout contrast Pending order MRI Lumbar witho ut contrast Pending order MRI Lumbar witho ut contrast Pending order MRI Thoracic wit hout contrast Pending order MRI Thoracic wit hout contrast Pending order MRI Cervical wit hout contrast Pending order X-ray Lumbar AP/ Lateral Pending order X-ray Lumbar AP/ Lateral Pending order X-ray Lumbar AP/ Lateral Pending order X-ray Lumbar AP/ Lateral Pending order X-Ray Lumbar - A P/Lateral & Flexion/Extension Pending order BRIDGETTE x 1 therapeu tic injection & follow up with ordering MD Pending order CT Thoracic with out Contrast Pending order CT Lumbar withou t Contrast Pending order CT Lumbar withou t Contrast Pending order CT Thoracic with out Contrast Pending order MRI Thoracic wit hout Contrast Pending order MRI Lumbar witho ut Contrast Pending order MRI Lumbar witho ut Contrast Pending order MRI Thoracic wit hout Contrast Pending order X-ray Cervical A P/Lateral Pending order X-Ray Cervical A P Lateral Pending order X-Ray Cervical A P Lateral Pending order Dr. Cotter PT - Cervical POST OP Pending order X-ray Cervical A P/Lateral Pending order CBC Pending order Renal Panel with BUN Pending order PT/PTT Pending order PT/PTT Pending order EKG Pending order INR Pending order INR Pending order CBC Pending order X-Ray Full Spine Standing with Bone Length Study (Orthoroentgenogram) Pending order X-Ray Full Spine Standing with Bone Length Study (Orthoroentgenogram) Pending Order exclud ed from report: Pending order Radiologic exami nation, AP- Lateral spine, cervical; 2 or 3 views Pending order Radiologic exami nation, AP- Lateral spine, cervical; 2 or 3 views Procedures Code Procedure Name Date Entry Date 25906 Evaluation - Low 15081 ADL Training Postural 10074IX, [id number] X-Ray Full Spine Sta nding with Bone Length Study (Orthoroentgenogram) Vital Signs Date Name Value Unit Description Height 70 [in_us] height E&M BMI (Body Mass Index) 43.04 kg/m2 Bod y Mass Index (Ratio) Weight Measured 300 [lb_av] weight E& M Weight Measured 300 [lb_av] weight E& M Immunizations No information available. Advance Directives No information available.
[2025-04-29] MEDS: DOXYCYCLINE HYCL 100 MG TABLET PO (16:22)
--- OUTSIDE RECORDS SUMMARY | 2025-04-29 16:22 | XMS_ITS | Encounter Summary ---
Author Organization [facility] Address [address] [place] [address] Phone Care Team Providers Care Partner Integration Planner Name Role Phone Kaylie Wade MD Primary Care Provider Marielle Schwartz MD Primary Care Provide r Reason for Visit * Reason Comments Refill Request Encounter Details Date Type Department Care Team (Late st Contact Info) Description 06/04/2023 Refill [facility] [address] [place] [address] Monae Almaraz MD [address] [place] [address] Social History Tobacco Use Types Packs/Day Years Used Date Smoking Tobacco: Former Cigarettes 1 25 0 06/20/1988 - 06/20/2013 Smokeless Tobacco: Current Chew Comments:dip Alcohol Use [...] money to get more. Never true 04/24/2023 Sex and Gender Information Value Date Recorded Sex Assigned at Not on file Legal Sex Male 8:28 PM EDT Gender Identity Not on file Sexual Orientation Not on file COVID-19 Exposure Response Date Recorded In the last 10 days, have yo u been in contact with someone who was confirmed or suspected to have Coronavirus/COVID-19? Unable to assess 05/13/2023 3:52 PM EDT documented as of this encounter Miscellaneous Notes * Telephone Encounter - Georgiana Dubon - 06/04/2023 9:52 AM EDT Date of last appointment 04/24/23 Date of next appointment 08/14/23 Refill to be sent to [facility] [id number] [facility] [address] [facility] [address] documented in this encounter Plan of Treatment Not on file documented as of this encounter Visit Diagnoses Not on filedocumented in this encounter Care Teams Partner Integration Planner Relationship Specialty Start Date End Date Kaylie Wade MD PCP - General Internal Medicine 05/01/23 05/05/24 Marielle Schwartz MD PCP - General Internal Medicine 05/06/24 documented as of this encounter
--- OUTSIDE RECORDS SUMMARY | 2025-04-29 16:22 | XMS_ITS | Encounter Summary ---
Author Organization [facility] Address [address] [place] [address] Phone Care Team Providers Care Physical Metallurgist Name Role Phone Kaylie Wade MD Primary Care Provider + [phone] Marielle Schwartz MD Primary Care Provide r Reason for Referral * MRI/CAT Scan (Routine) - Closed Specialty Diagnoses / Procedures Referred By Contluis hendrix Referred To Contact Radiology Diagnoses Cigarette smoker Procedures CT LUNG SCREEN Minerva Espinoza CNP Phone: tel: fax: Referral ID Status Reason Start Date Expiration Date V isits Requested Visits Authorized [id number] Closed Specialty Services Required 05/29/2023 05/28/2024 1 1 Encounter Details Date Type Department Care Team (Late st Contact Info) Description 05/29/2023 Orders Only [facility] [address] [place] [address] Gogo Kendall Registered Nurse Cigarette smoker (Primary Dx) Social History Tobacco Use Types Packs/Day Years [...] PM EDT documented as of this encounter Plan of Treatment Scheduled Orders Name Type Priority Associated Diagnoses Orde r Schedule CT LUNG SCREEN Imaging Routine Cigarette smoker Expected: 05/29/2023, Expires: 08/29/2024 documented as of this encounter Visit Diagnoses Diagnosis Cigarette smoker- Primary Tobacco use disorder documented in this encounter Care Teams Physical Metallurgist Relationship Specialty Start Date End Date Kaylie Wade MD PCP - General Internal Medicine 05/01/23 05/05/24 Marielle Schwartz MD PCP - General Internal Medicine 05/06/24 documented as of this encounter
--- OUTSIDE RECORDS SUMMARY | 2025-04-29 16:22 | XMS_ITS | Encounter Summary ---
Author Organization [facility] Address [address] [place] [address] Phone Care Team Providers Care Bottling Machine Operator Name Role Phone Monae Almaraz MD Primary Care Provid er Kaylie Wade MD Primary Care Provider [phone] Marielle Schwartz MD Primary Care Provide r Encounter Details Date Type Department Care Team (Late st Contact Info) Description 02/27/2023 Orders Only [facility] E[facility] [address] [place] [address] Gerald Avilez Preoperative examination Social History Tobacco Use Types Packs/Day Years [...] to get utilities Not on file 03/13/20 24 Sex and Gender Information Value Date Recorded [...] as of this encounter Miscellaneous Notes * Result Encounter Note - Rivka Taylor - 02/27/2023 2:29 PM EDT Patient has viewed Sandbox message F/u 04/24/23 documented in this encounter Plan of Treatment Not on file documented as of this encounter Procedures Procedure Name Priority Date/Time Associated Diagnosis Comments ECG 12-LEAD Routine 02/27/2023 10:59 AM EDT Preoperative examination documented in this encounter Results * ECG 12 lead (02/27/2023 10:59 AM EDT) Height in TH TRACEMASTER HEART RATE 66 bpm TH TRACEMASTER RR INTERVAL 909 ms TH TRACEMASTER ATRIAL RATE 66 ms TH TRACEMASTER P-R Interval 141 ms TH TRACEMASTER P Duration 88 ms TH TRACEMASTER P HORIZONTAL 32 deg TH TRACEMASTER P FRONT AXIS 3 deg TH TRACEMASTER Q Onset 508 ms TH TRACEMASTER QRSD Interval 96 ms TH TRACEMASTER QT INTERVAL 384 ms TH TRACEMASTER QTCB 403 ms TH TRACEMASTER QTcF 396 ms TH TRACEMASTER QRS Horizontal [place] -72 deg TH TRACEMASTER QRS AXIS -3 deg TH TRACEMASTER I-40 Horizontal [place] 20 deg TH TRACEMASTER I-40 FRONT AXIS -32 deg TH TRACEMASTER T-40 Horizontal [place] 269 deg TH TRACEMASTER T-40 Front [place] 84 deg TH TRACEMASTER T Horizontal [place] 43 deg TH TRACEMASTER T WAVE AXIS 36 deg TH TRACEMASTER S-T Horizontal [place] 74 deg TH TRACEMASTER S-T Front [place] 78 deg TH TRACEMASTER ECG IMPRESSION - BORDERLINE ECG - TH TRACEMASTER ECG IMPRESSION SR-Sinus rhythm-normal P axis, V-rate 50-99 TH TRACEMASTER ECG IMPRESSION LVOLP-Low voltage, precordial leads-precordi al leads <1.0mV TH TRACEMASTER ECG IMPRESSION AMIC-Consider anterior infarct-Q >30mS in V2-V5 TH TRACEMASTER ECGGUID [id number] TH TRACEMASTER ECGGUID [id number] TH TRACEMASTER 02/27/2023 10:5 9 AM EDT [facility]arwal [facility] Final Result Performing Organization Address City/State/[facility] Co de Phone Number TH TRACEMASTER documented in this encounter Visit Diagnoses Diagnosis Preoperative examination Preoperative examination, unspecified documented in this encounter Care Teams Bottling Machine Operator Relationship Specialty Start Date End Date Monae Almaraz MD PCP - General Internal Medicine 06/20/22 04/30/23 Kaylie Wade MD PCP - General Internal Medicine 05/01/23 05/05/24 Marielle Schwartz MD PCP - General Internal Medicine 05/06/24 documented as of this encounter
[2025-04-29 16:31] VITALS: BP 155/91; PULSE 80; RESP 18; TEMP 37.2; O2SAT 96
== END 2025-04-29 16:32 | disposition home or self-care (01) ==
PROVIDERS: Emergency Provider Emergency Medicine; PCP Family Medicine
DX: L55.9 Sunburn, unspecified (principal)
CPT/HCPCS: 99283